=== PATIENT | male | born 1975 | race Caucasian/White ===

== ENCOUNTER 2020-01-18 08:47 | Emergency (ER) | payer OTHER, SELFPAY ==
--- NOTE | 2020-01-18 09:03 | ED.ABDPAIN ---
HPI - Abdominal Pain General Chief Complaint: Abdominal Pain Stated Complaint: pain in lower right abdominal,throwing up Time Seen by Provider: 01/18/20 08:57 Source: patient Mode of arrival: Ambulatory Limitations: no limitations History of Present Illness HPI narrative: This is a 44-year-old male who comes to the emergency department with right lower abdominal pain. Patient states that he has not any fevers although he has felt chilled right before he vomits. He has had in the right lower abdomen it started out more generalized and has localized more to the right but continues to be a generalized as well. Majority of his pain is in the right lower quadrant. It started 2 days ago and has been increasing over time. He had some improvement yesterday but was significantly worse this morning. He did start throwing up in the last 24 hours. He states he has not had a bowel movement for 24 hours he did have flatus yesterday but not for the last 12 hours. He has been able to urinate, he states he may have had some decreased output but has not noticed any frequency, urgency or dysuria or hematuria. He denies any back or flank pain. He has had a vasectomy as well as wisdom tooth removal. He takes lisinopril 20 mg daily for hypertension and denies other medical issues. Smokes tobacco 2-3 times weekly. 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 No illicit. Related Data Previous Rx's Medication Instructions Recorded hydrocodone-acetaminophen [[place]] 1 tab PO Q6H PRN #14 tab 01/18/20 tamsulosin [Flomax] 0.4 mg PO DAILY #7 cap 01/18/20 Allergies Allergy/AdvReac Type Severity Reaction Status Date / Time No Known Drug Allergies Allergy Verified 01/18/20 09:19 Review of Systems Review of Systems ROS Unobtainable: All systems reviewed & are unremarkable except as noted in HPI and below Patient History Medical History (Updated 01/18/20 @ 10:57 by Belén Gould DO) Hypertension (Acute) Surgical History (Updated 01/18/20 @ 09:06 by Belén Gould DO) H/O vasectomy (Acute) Social History Smoking Status: Current some day smoker Smoking Status: Current some day smoker tobacco type: cigarettes alcohol intake frequency: a few times a month Substance Use Type: does not use Exam Narrative Exam Narrative: GENERAL: Alert and oriented x three, well-nourished male in moderate distress. HEENT: Head normocephalic, atraumatic, EOMI, pupils reactive, face symmetric, moist mucous membranes NECK: Supple, full range of motion CARDIOVASCULAR: Regular rate and rhythm without murmurs, rubs or gallops. RESPIRATORY: Breath sounds equal bilaterally, no wheezes rales or rhonchi. ABDOMEN: Soft, positive for generalized tenderness but greatest in the right lower quadrant, patient does have some right inguinal tenderness as well although on unable to palpate a clear mass or lumbar inguinal hernia. Normoactive bowel sounds all 4 quadrants. No guarding or rebound, rigidity, no mass. : No CVA tenderness EXTREMITIES: Normal range of motion, no clubbing or edema. Neurovascularly intact NEUROLOGICAL: Cranial nerves II through XII grossly intact. Moving all extremities SKIN: Warm, dry, no petechiae, no rashes or lesions. Initial Vital Signs Initial Vital Signs: Vital Signs Temperature 99.2 F 01/18/20 09:04 Pulse Rate 89 01/18/20 09:04 Respiratory Rate 18 01/18/20 09:04 Blood Pressure 169/97 H 01/18/20 09:04 Pulse Oximetry 100 01/18/20 09:04 Course Orders Ordered: ED Orders 01/18/20 09:39 Complete Blood Count AUTO DIFF Stat Comprehensive Metabolic Panel Stat Lipase Stat 01/18/20 09:53 CT abdomen pelvis w con Stat 01/18/20 09:56 Urine Culture Stat Urine Microscopic Stat Discontinued Medications Sodium Chloride (Normal Saline 0.9%) 1,000 mls @ 1,000 mls/hr IV BOLUS ONE Stop: 01/18/20 10:02 Last Infusion: 01/18/20 11:23 Dose: 0 mls/hr Documented by: Admin: 01/18/20 09:31 Dose: 1,000 mls/hr Documented by: LEONIDAS Ketorolac Tromethamine (Toradol) 15 mg IV NOW ONE Stop: 01/18/20 09:04 Last Admin: 01/18/20 09:31 Dose: 15 mg Documented by: LEONIDAS Ondansetron HCl (Zofran) 4 mg IV NOW ONE Stop: 01/18/20 09:04 Last Admin: 01/18/20 09:31 Dose: 4 mg Documented by: LEONIDAS Tamsulosin HCl (Flomax) 0.4 mg PO NOW ONE Stop: 01/18/20 10:58 Last Admin: 01/18/20 11:09 Dose: 0.4 mg Documented by: VENUS Vital Signs Vital signs: Vital Signs - 8 hr 01/18/20 09:04 01/18/20 10:28 01/18/20 11:31 Temperature 99.2 F Pulse Rate 89 94 H 68 Respiratory Rate 18 98 H 14 Blood Pressure 169/97 H Blood Pressure [Left Arm] 127/72 128/72 Pulse Oximetry 100 97 99 MDM - Abdominal Pain Lab Data Result diagrams: 01/18/20 09:39 01/18/20 09:39 Labs: Lab Results 01/18/20 01/18/20 01/18/20 Range/Units 09:39 09:39 09:56 WBC 14.4 H (4.5-11.0) X10^3/uL RBC 4.76 (4.5-5.9) X10^6/uL Hgb 14.9 (13.5-17.5) g/dL Hct 43.4 (41-53) % MCV 91.2 (80-100) fL MCH 31.3 (26-34) PG MCHC 34.3 (30-36) % RDW 12.1 (11.6-14.8) % Plt Count 223 (150-400) X10^3/uL Neut % (Auto) 87.6 H (50-75) % Lymph % (Auto) 7.5 L (25-40) % [place] % (Auto) 4.3 (3-14) % Eos % (Auto) 0.1 L (2-4) % Baso % (Auto) 0.5 (0-2) % Neut # (Auto) 98368 H (3289-5857) /uL Lymph # (Auto) 1100 (4682-9569) /uL [place] # (Auto) 600 (0-900) /uL Eos # (Auto) 0 (0-450) /uL Baso # (Auto) 100 (0-100) /uL Sodium 138 (137-145) mmol/L Potassium 4.0 (3.4-5.1) mmol/L Chloride 104 (98-107) mmol/L Carbon Dioxide 26 (22-32) mmol/L BUN 22 H (9-20) mg/dL Creatinine 1.16 (0.66-1.25) mg/dL Estimated GFR > 60.0 (>60) mL/min BUN/Creatinine Ratio 19.0 (6-22) Glucose 130 H (70-100) mg/dL Calcium 9.5 (8.4-10.2) mg/dL Total Bilirubin 0.9 (0.2-1.3) mg/dL AST 47 (17-59) IU/L ALT 58 H (<50) IU/L Alkaline Phosphatase 54 (38-126) U/L Total Protein 7.6 (6.3-8.2) g/dL Albumin 4.6 (3.5-5.0) g/dL Globulin 3.0 (1.7-4.1) g/dL Albumin/Globulin Ratio 1.5 (1.0-2.8) Lipase 99 (23-300) U/L Urine RBC 30-100/hpf H (0-5/HPF) Urine WBC 1-5/hpf (0-5/HPF) Urine Bacteria Moderate (10-30) H (None) Ur Culture Indicated? Specimen cultured Point of care testing: Urine Dip Bedside Urine Glucose Negative Bedside Urine Bilirubin - Negative Bedside Urine Ketone - Negative Urine Specific Athena 1.010 Bedside Urine Occult Blood +++ Bedside Urine pH 7.0 Bedside Urine Protein +/- 15 Bedside Urine Urobilinogen - Negative Bedside Urine Nitrite - Negative Bedside Urine Leukocytes +/- 15 Esterase MDM Narrative Medical decision making narrative: Patient's evaluation was suspicious for appendicitis but he may possibly have hernia and he has some obstructive-type symptoms with vomiting and no bowel movement for 24 hours and not passing gas for the last 12. Patient does not appear septic at this time with heart rate in the 70s he is afebrile. Patient has elevated wbc, normal hgb, no acute changes with electrolytes BUN 22 with normal renal function and glucose is 130. ALT is 58 with otherwise normal LFTs and urine shows red blood cells with moderate bacteria, patient has little bit of leukocyte esterase but no nitrates. It was sent for culture. Patient has not had any infectious symptoms and has been afebrile and hold off on antibiotics at this time. CT does show a 2 mm stone to moderate right hydro and hydroureter. Patient about 1.5 cm proximal ureterovesical junction. There is some perinephric stranding. Patient chart did not note appendix but I did discuss with the Dr. Elias with radiology and they do note a normal appendix on imaging. Also has a fat containing ventral hernia. Patient's pain significantly improved with Toradol and he feels comfortable returning home. Was started on Flomax given prescription for pain medication and nausea. He lives in the [facility] so was given referral for local urology but recommended follow-up with his primary care if he would like someone closer to home. Discussed return precautions signs and symptoms to watch for patient feels comfortable with this plan. Discharge Plan Departure Patient Disposition: Home Clinical Impression: Calculus of right ureter Discharge Date/Time: 01/18/20 11:33 Instructions: DI for Kidney Stones Activity Restrictions/Additional Instructions: Follow-up with her primary care and/or urology in the next 3-4 days if her symptoms have not resolved. Call for an appointment. Continue Flomax once daily until gone. You may take Motrin up to 800 mg every 8 hours as needed for pain. If this is not adequate you may take narcotic pain medication as prescribed. This medication can make you sleepy do not drive, perform hazardous activities or make any major decisions while taking it. It also causes constipation so I would recommend a stool softener such as Colace 1-2 tablets until soft stools while taking narcotics. If you are having fevers, inability urinate, rapidly increasing pain, persistent vomiting, passing out, black or bloody stools or other new or concerning symptoms return to the emergency department. Prescriptions: New tamsulosin [Flomax] 0.4 mg capsule 0.4 mg PO DAILY Qty: 7 RF: 0 hydrocodone-acetaminophen [[place]] 5-325 mg tablet 1 tab PO Q6H PRN (Reason: pain) Qty: 14 RF: 0 Referrals: Tam Dyer MD [Physician] -
[2020-01-18 09:04] VITALS: BP 169/97; PULSE 89; RESP 18; TEMP 37.3; O2SAT 100; BMI 33.0
[2020-01-18] MEDS: KETOROLAC 60 MG/2 ML VIAL 15 MG IV (09:31)
[2020-01-18] MEDS: ONDANSETRON 4 MG/2 ML INJ IV (09:31)
[2020-01-18] MEDS: SODIUM CHLORIDE 0.9% 1,000 ML 1000 ML IV (09:31)
[2020-01-18 09:49] LABS: Add Manual Diff / Slide Review NO; Basophils Absolute Auto 100 /uL (0-100); Basophils Percent Auto 0.5 % (0-2); Eosinophils Absolute Auto 0 /uL (0-450); Eosinophils Percent Auto 0.1 % (2-4); Hematocrit 43.4 % (41-53); Hemoglobin 14.9 g/dL (13.5-17.5); Lymphocytes Absolute Auto 1100 /uL (1100-4500); Lymphocytes Percent Auto 7.5 % (25-40); Mean Corpuscular HGB Conc 34.3 % (30-36); Mean Corpuscular Hemoglobin 31.3 PG (26-34); Mean Corpuscular Volume 91.2 fL (80-100); Monocytes Absolute Auto 600 /uL (0-900); Monocytes Percent Auto 4.3 % (3-14); Neutrophils Absolute Auto 12600 /uL (1500-7000); Neutrophils Percent Auto 87.6 % (50-75); Platelet Count 223 X10^3/uL (150-400); Red Blood Cell Count 4.76 X10^6/uL (4.5-5.9); Red Cell Distribution Width 12.1 % (11.6-14.8); White Blood Cell Count 14.4 X10^3/uL (4.5-11.0)
--- NOTE | 2020-01-18 09:53 | DI.CT.S_ITS ---
PROCEDURE: CT ABDOMEN PELVIS W CON INDICATIONS: RLQ pain, concern for appendicitisy, R inguinal pain also TECHNIQUE: After the administration of intravenous contrast, 5 mm thick sections acquired from the diaphragm to the symphysis. 5 mm coronal and sagittal reformats were acquired. For radiation dose reduction, the following was used: automated exposure control, adjustment of mA and/or kV according to patient size. COMPARISON: None. FINDINGS: Image quality: Excellent. ABDOMEN: Lung bases: Partially visualized right middle lobe nodule measuring 6 mm on series 3 image one is present. No priors are available for comparison. Solid organs: Liver is enlarged with steatosis. Gallbladder is unremarkable. Biliary system is non dilated. Pancreas enhances normally. Spleen is normal in size and enhancement. No adrenal nodules. Kidneys demonstrate normal size and enhancement. There is minimal to mild right hydronephrosis and hydroureter with a 2 mm calcification in the distal right ureter, approximately 1.5 cm proximal to the ureterovesicular junction. Right perinephric stranding is present. Punctate nonobstructing calcification is noted within the lower poles of the kidneys bilaterally. In addition, 5 mm calcification Hounsfield units 388 is present within the lower pole of the left kidney. Peritoneum and bowel: Bowel loops demonstrate normal wall thickness and caliber. No free fluid or air. Colonic diverticula are present. Nodes and vessels: No retroperitoneal or mesenteric adenopathy by size criteria. Aorta and inferior vena cava are normal in size. Miscellaneous: Fat-containing ventral hernia is present. PELVIS: Genitourinary: Bladder wall thickness is normal. Miscellaneous: No inguinal hernias or adenopathy. Bones: No suspicious bony lesions. No vertebral body compression fractures. IMPRESSION: 1. Mild to moderate right hydronephrosis and hydroureter secondary to punctate distal right ureteral calculus. 2. Nonobstructing bilateral renal calculi. 3. Diverticulosis. Dictated by: Jamee Luque M.D. on 01/18/2020 at 10:03 Approved by: Jamee Luque M.D. on 01/18/2020 at 10:18
[2020-01-18 09:59] LABS: Alanine Aminotransferase 58 IU/L (<50); Albumin 4.6 g/dL (3.5-5.0); Albumin Globulin Ratio 1.5 (1.0-2.8); Alkaline Phosphatase 54 U/L (38-126); Aspartate Aminotransferase 47 IU/L (17-59); Bilirubin Total 0.9 mg/dL (0.2-1.3); Blood Urea Nitrogen 22 mg/dL (9-20); Calcium 9.5 mg/dL (8.4-10.2); Carbon Dioxide 26 mmol/L (22-32); Chloride 104 mmol/L (98-107); Estimated Glomerular Filt Rate > 60.0 mL/min (>60); Glucose 130 mg/dL (70-100); HEMOLYSIS 23 (0-50); Lipase 99 U/L (23-300); Sodium 138 mmol/L (137-145); Total Protein 7.6 g/dL (6.3-8.2)
[2020-01-18 10:27] LABS: Bacteria Urine Moderate (10-30); RBC Urine 30-100/HPF (0-5/HPF); WBC Urine 1-5/HPF (0-5/HPF)
[2020-01-18 10:28] VITALS: BP 127/72; PULSE 94; RESP 98; O2SAT 97
[2020-01-18 10:28] LABS: Culture Indicated Urine Specimen Cultured
[2020-01-18] MEDS: TAMSULOSIN 0.4 MG CAPSULE PO (11:09)
[2020-01-18 11:31] VITALS: BP 128/72; PULSE 68; RESP 14; O2SAT 99
== END 2020-01-18 11:33 | disposition home or self-care (01) ==
PROVIDERS: Emergency Provider Emergency Medicine
DX: N20.1 Calculus of ureter (principal); D72.829 Elevated white blood cell count, unspecified; R11.10 Vomiting, unspecified; I10 Essential (primary) hypertension
CPT/HCPCS: 36415; 74177; 80053; 81003; 81015; 83690; 85025; 87077; 87086; 87186; 96361; 96374; 96375; 99284; J1885; J2405; Q9967